=== PATIENT | male | born 1970 | race Caucasian/White ===

== ENCOUNTER 2017-08-28 09:02 | Emergency (ER) | payer SELFPAY ==
[2017-08-28] MEDS ORDERED: Lidocaine 1% w/Epinephrine 1:100K 20 ML VIAL ONE (09:08)
[2017-08-28] MEDS ORDERED: Adacel (T-DAP) 0.5 ML VIAL ONE (09:09)
[2017-08-28] MEDS ORDERED: HYDROcodone/Acetaminophen 10/325 mg Tablet ONE (09:24)
--- NOTE | 2017-08-28 09:48 | RAD ---
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 FINDINGS: AP, lateral, and oblique views of left hand obtained. Images demonstrate extensive soft tissue injury along the dorsal medial aspect of soft tissues of the base of the right hand just medial and dorsal to the carpometacarpal joint medially. There is exten sive soft tissue injury. Fragments of metal are seen within the injured soft tissues. No other sign ificant masses or lesions seen. IMPRESSION: Extensive soft tissue injury with fragments of metal within the injured soft tissue. Additional mult iple fragments of metal are seen covering the patient's left hand. POS: [facility]
[2017-08-28] MEDS ORDERED: Ketorolac Tromethamine 60 MG/2 ML VIAL ONE (10:24)
== END 2017-08-28 10:49 | disposition home or self-care (01) ==
LOC: ERS 09:02
DX: S66.327A Laceration of extensor muscle, fascia and tendon of left little finger at wrist and hand level, initial encounter (principal); F17.210 Nicotine dependence, cigarettes, uncomplicated; I10 Essential (primary) hypertension; W26.8XXA Contact with other sharp object(s), not elsewhere classified, initial encounter
CPT/HCPCS: 12002; 90471; 90715; 96372; J1885; J2001

== ENCOUNTER 2017-08-28 20:21 | Inpatient (IN) | payer SELFPAY ==
[~2017-08-28 20:21] MED LIST: Dexamethasone 20 MG/5 ML VIAL ONE; Lidocaine 1% PF 5 ML VIAL ONE; Ondansetron HCl/PF 4 MG/2 ML Vial ONE; PHENYLEPHRINE-NS 100 MCG/ML 10 ML SYRINGE ONE; PROPOFOL 200 MG/20 ML VIAL ONE; ePHEDrine/0.9% NaCl/PF SYRINGE 50 mg/10 ml ONE
[2017-08-28] MEDS ORDERED: Labetalol HCl 100 MG/20 ML VIAL ONE (20:25)
[2017-08-28 20:36] LABS: #Basophils 0.1 thou/uL (0.0-0.2); #Eosinphils 0.2 thou/uL (0.0-0.7); #Lymphocytes 3.9 thou/uL (1.20-3.40); #Monocytes 1.4 thou/uL (0.11-0.59); #Neutrophils 7.2 thou/uL (1.40-6.50); %Basophils 0.9 % (0.0-1.0); %Eosinophils 1.5 % (0.0-10.0); %Lymphocytes 30.3 % (21.0-51.0); %Monocytes 11.2 % (0.0-10.0); %Neutrophils 56.2 % (42.0-75.0); Hemoglobin 13.7 g/dL (14.0-18.0); Mean Corpuscular HGB CONC 34.2 g/dL (32.0-36.0); Mean Corpuscular Volume 90.8 fl (80.0-94.0); Mean Platelet Volume 7.3 fL (7.4-10.4); Platelet Count 274 thou/uL (130-400); RBC Distribution Width 12.1 % (11.5-14.5); Red Blood Cell (RBC) Count 4.43 mill/uL (4.70-6.10); White Blood Cell (WBC) Count 12.9 thou/uL (4.8-10.8)
[2017-08-28] MEDS ORDERED: Clindamycin/D5W 600 mg/50 ml Premix Bag ONE (20:59)
[2017-08-28] MEDS ORDERED: Levofloxacin 500 mg/D5W 100 ml Premix Bag ONE (20:59)
[2017-08-28] MEDS ORDERED: Bacitracin Zinc Ointment 30 gm TUBE ONE (21:01)
[2017-08-28] MEDS ORDERED: Bupivacaine PF 0.5% 30 ML VIAL ONE (21:01)
[2017-08-28] MEDS ORDERED: Sodium Chloride 0.9% 10 ML ONE (21:01)
[2017-08-28] MEDS ORDERED: Fentanyl 100 MCG/2 ML VIAL ONE (21:35)
[2017-08-28] MEDS ORDERED: Midazolam HCl 2 mg/2 ml Vial ONE (21:52)
[2017-08-28] MEDS ORDERED: Sodium Chloride 0.9% 20 ML ONE (22:48)
[2017-08-28] MEDS ORDERED: Ondansetron HCl/PF 4 MG/2 ML Vial IVP PRN (23:34)
[2017-08-28] MEDS ORDERED: Promethazine HCl 25 MG/ML VIAL IM PRN (23:34)
[2017-08-28] MEDS ORDERED: Promethazine HCl 25 MG/ML VIAL SLOW IVP PRN (23:34)
[2017-08-28] MEDS ORDERED: Communication Order-Pharmacy FS SCH (23:45)
[2017-08-28] MEDS ORDERED: traMADol HCl 50 MG TAB PO PRN (23:54)
[2017-08-28] MEDS ORDERED: Bisacodyl 10 MG SUPP PR PRN (23:54)
[2017-08-28] MEDS ORDERED: Morphine 4 MG/ML Carpuject IVP PRN (23:54)
[2017-08-28] MEDS ORDERED: Milk Of Magnesia 30 ML UDCUP PO PRN (23:54)
[2017-08-28] MEDS ORDERED: Ondansetron HCl/PF 4 MG/2 ML Vial IV PRN (23:54)
[2017-08-28] MEDS ORDERED: Acetaminophen 325 MG TAB PO PRN (23:54)
[2017-08-28] MEDS ORDERED: Ketorolac Tromethamine 30 MG/ML VIAL ONE (23:57)
[2017-08-29] MEDS ORDERED: HYDROcodone/Acetaminophen 7.5/325 mg Tablet PO PRN (00:06)
[2017-08-29] MEDS ORDERED: Fentanyl 100 MCG/2 ML VIAL ONE (00:06)
[2017-08-29] MEDS ORDERED: Ketorolac Tromethamine 30 MG/ML VIAL IVP PRN (00:16)
[2017-08-29] MEDS: Morphine 4 MG/ML VIAL IV PRN ×2 (01:20→10:38)
[2017-08-29] MEDS: CEFAZOLIN 1 GM in Sodium Chloride 0.9% 100 ML IVPB SCH ×3 (01:24→16:49)
[2017-08-29] MEDS: Gentamicin 80 MG/2 ML VIAL IM SCH ×3 (01:24→16:49)
[2017-08-29 01:45] VITALS: BMI 26.0
[2017-08-29 04:05] LABS: #Lymphocytes 1.1 thou/uL (1.20-3.40); #Monocytes 0.2 thou/uL (0.11-0.59); #Neutrophils 9.7 thou/uL (1.40-6.50); %Basophils 0.4 % (0.0-1.0); %Lymphocytes 9.8 % (21.0-51.0); %Monocytes 1.8 % (0.0-10.0); %Neutrophils 87.9 % (42.0-75.0); Hemoglobin 13.5 g/dL (14.0-18.0); Mean Corpuscular HGB CONC 33.9 g/dL (32.0-36.0); Mean Corpuscular Hemoglobin 31.2 pg (27.0-31.0); Mean Corpuscular Volume 92.1 fl (80.0-94.0); Mean Platelet Volume 7.4 fL (7.4-10.4); Platelet Count 257 thou/uL (130-400); RBC Distribution Width 12.1 % (11.5-14.5); Red Blood Cell (RBC) Count 4.33 mill/uL (4.70-6.10)
[2017-08-29] MEDS: Aspirin 81 mg Enteric Coated Tablet PO SCH ×2 (08:46→21:19)
[2017-08-29] MEDS ORDERED: TETANUS AND DIPHTHERIA TOX/PF 0.5 ML DISP.SYRIN IM SCH (09:00)
[2017-08-29] MEDS: HYDROcodone/Acetaminophen 5/325 mg Tablet PO PRN ×2 (14:57→21:19)
[2017-08-29 15:23] LABS: Hemoglobin A1c 4.9 % (4.0-6.0)
[2017-08-29 15:37] LABS: ALT (SGPT) 53 U/L (8-55); AST (SGOT) 23 U/L (5-34); Albumin 3.4 g/dL (3.5-5.0); Alkaline Phosphatase 70 U/L (40-150); Anion Gap 10 mmol/L (10-20); BUN (Urea Nitrogen) 14 mg/dL (8.9-20.6); Bilirubin, Total 0.2 mg/dL (0.2-1.2); Calc. Creatinine Clearance 120 mL/min (70-130); Calcium 8.9 mg/dL (7.8-10.44); Carbon Dioxide 23 mmol/L (22-29); Chloride 107 mmol/L (98-107); Estimated GFR-MDRD 89; Globulin 3.1 g/dL (2.4-3.5); Glucose 206 mg/dL (70-105); Potassium 4.2 mmol/L (3.5-5.1); Protein, Total 6.5 g/dL (6.0-8.3); Sodium 136 mmol/L (136-145)
--- NOTE | 2017-08-29 15:52 | OP ---
DATE OF SURGERY: 08/29/2017 PREOPERATIVE DIAGNOSES: 1. Open joint injury, small finger and ring finger to hamate, carpometacarpal joint. 2. Possible open fracture to hamate. 3. Multiple extensor tendon lacerations, dorsal ulnar hand. 4. Possible superficial ulnar nerve lesion. 5. More complete superficial ulnar nerve lesion with lacerations just over the extensor carpi ulnari s in the proximal aspect of the wound. A. Complete extensor carpi ulnaris laceration of tendon and sheet. B. Complete laceration of the ring finger and small finger extensor tendons. C. Open joint with minimal contamination. D. Open hamate fracture base ulnar aspect involving 50% of the width of the hamate with brown partic les embedded. PROCEDURES DONE: The patient also had the following findings: 1. A 2 cm compression fracture on the dorsal aspect of hamate with embedded particles. 2. Subcutaneous metallic particles and dirt in the center of the wound. 3. Hematoma. 4. Extensor carpi ulnaris, small finger, extensor tendon and ring finger extensor laceration. 5. Superficial ulnar nerve dorsal aspect of the hand and metacarpal base lacerations completed. A. Debridement of the wound. B. Debridement of the carpometacarpal joint, SF/RF to hamate. C. Debridement of material associated open fracture. D. Open treatment of hamate fracture. E. Evacuation of hematoma. 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 Upon reevaluation in the emergency room, he had eaten at , thus necessitating an approximate ly 2100 start. DESCRIPTION OF PROCEDURE: After successful general endotracheal anesthesia, the patient's limb was p repped and draped. We also had on exam evidence of weakness of lateralization and abduction of the e xtremity and this was confirmed. After prepping and draping, given 30 mL of 0.5% Marcaine block, exs anguinated limb, inflated the tourniquet to 250 mmHg pressure and performed standard care of procedur es, patient still had inability after this router injury to make extensor mechanism worked appropriat maki. For this reason, after successful general endotracheal anesthesia, the limb was prepped and daily ped. We then inflected the edges back using a 45 degree proximal and 45 degree distal incision in th e opposite side of the ulnar ray. This then led to dissection down to and including the joint capsul e, which was opened and had a hematoma around it, we excised this. Then, simultaneously we began to lift up the joint, open joint, 4th and 5th carpometacarpal joint as well as the hamate fracture with an impression of 5 mm thick x 2 cm long. Once we had performed these debridements to include using tenotomy scissors for subcutaneous debridem ent, the technique of debridement was excisional and then there was no evidence of conflict. The patient then had the wound further inspected following extensor carpi ulnaris laceration 5 mm fro m the insertion with slight opening in the retinaculum with 1 cm reveal the few particles, a hematoma of approximately 50 mL, which were evacuated and then began on second irrigation today. Once this w as accomplished, we identified the extensor carpi ulnaris and extensor digiti minimi which had withdr awn back into the retinaculum, we visualized clinically fusion mass as well radiographically, and the n the patient had hemostasis obtained after deflating the wound. The tourniquet, put a moist dressin g with a sorbsan, calcium alginate dressing next to the wound and finger tube gauze with the plan to remove the dressing and then 36-48 hours from now have second look surgery with debridement .
[2017-08-29 18:10] LABS: Bilirubin Negative (Negative); Blood, Urine Negative (Negative); Clarity CLEAR (Clear); Glucose, Urine (Dipstick) 500 mg/dL (Negative); Leukocyte Negative (Negative); Nitrite Negative (Negative); Protein, Urine (Dipstick) Negative (Neg-Trace); Specific Gravity, Urine 1.021 (1.002-1.036); Urobilinogen 0.2 mg/dL (0.2-1.0)
[2017-08-29] MEDS: Vancomycin HCl 1.25 GM in Sodium Chloride 0.9% 250 ML 250 ML IVPB SCH (18:47)
[2017-08-29] MEDS: Chlorhexidine Gluconate 15 ML UDCUP SSP SCH (21:19)
--- NOTE | 2017-08-29 22:47 | PDOC.PN ---
- Subjective Encounter Start Date: 08/29/17 Encounter Start Time: 14:00 Patient seen and examined for med mgnt. c/o Polyuria/dysuria. Some dental pain on and off. No new complaints. No overnight events - Objective MAR Reviewed: Yes Vital Signs & Weight: Vital Signs (12 hours) Temp Pulse Resp BP Pulse Ox 08/29/17 20:00 98.3 F 94 18 149/87 H 94 L 08/29/17 15:45 98.7 F 95 14 160/84 H 92 L 08/29/17 12:19 98.7 F 93 16 142/82 H 94 L 08/29/17 11:55 98.7 F 93 16 142/82 H 94 L Weight Weight 187 lb I&O: 08/28/17 08/29/17 08/30/17 06:59 06:59 06:59 Intake Total 1500 Output Total 700 850 Balance -700 650 Result Diagrams: 08/29/17 03:44 08/29/17 15:03 EKG Reviewed by me: Yes (SR on tele strips) Phys Exam - Physical Examination Constitutional: NAD Respiratory: no wheezing, no rhonchi Cardiovascular: RRR, no rub Gastrointestinal: soft, non-tender, positive bowel sounds Dx/Plan (1) Elevated BP without diagnosis of hypertension Code(s): R03.0 - ELEVATED BLOOD-PRESSURE READING, W/O DIAGNOSIS OF HTN Status : Acute (2) Dysuria Code(s): R30.0 - DYSURIA Status: Acute Comment: with Polyuria (3) Lack of energy Code(s): R53.83 - OTHER FATIGUE Status: Acute (4) Hyperglycemia Code(s): R73.9 - HYPERGLYCEMIA, UNSPECIFIED Status: Acute (5) Tobacco dependence Code(s): F17.200 - NICOTINE DEPENDENCE, UNSPECIFIED, UNCOMPLICATED Status: Acute Comment: Counselled. (6) CKD (chronic kidney disease) stage 2, GFR 60-89 ml/min Code(s): N18.2 - CHRONIC KIDNEY DISEASE, STAGE 2 (MILD) Status: Chronic - Plan DVT proph w/SCDs Add Amlodipine in AM if BP still elevated, Add Peridex for dental caries -: Check A1c to r/o DM, Add PRN meds -: Check UA for dysuria, Also check TSH due to gen weakness. -: Will follow PRN. Thank you for this consultation. Review of Systems - Review of Systems Respiratory: negative: Cough, Dry, Shortness of Breath, Hemoptysis, SOB with Excertion, Pleuritic Pain, Sputum, Wheezing Cardiovascular: negative: chest pain, palpitations, orthopnea, paroxysmal nocturnal dyspnea, edema, light headedness, other Genitourinary: Dysuria, Other (Polyuria) - Medications/Allergies Allergies/Adverse Reactions: Allergies Allergy/AdvReac Type Severity Reaction Status Date / Time No Known Allergies Allergy Verified 08/29/17 01:37 Medications: Current Medications Acetaminophen (Tylenol) 650 mg PO Q6H PRN PRN Reason: Headache/Temp >101F/Mild Pain Hydrocodone Bitart/Acetaminophen ([place] 5/325) 2 tab PO Q4H PRN PRN Reason: Severe Pain (7-10) Last Admin: 08/29/17 21:19 Dose: 2 tab Hydrocodone Bitart/Acetaminophen ([place] 7.5/325) 1 tab PO Q4H PRN PRN Reason: Mild Pain (1-3) Aspirin (Ecotrin) 81 mg PO BID [facility] Last Admin: 08/29/17 21:19 Dose: 81 mg Bisacodyl (Dulcolax) 10 mg OR DAILYPRN PRN PRN Reason: Constipation Chlorhexidine Gluconate (Chlorhexidine Gluconate) 15 ml SSP BID [facility] Last Admin: 08/29/17 21:19 Dose: 15 ml Gentamicin Sulfate (Gentamicin Sulfate) 80 mg IM 0100,0900,1700 [facility] Stop: 09/01/17 01:01 Last Admin: 08/29/17 16:49 Dose: 80 mg Cefazolin Sodium 1 gm/ Sodium (Chloride) 100 mls @ 200 mls/hr IVPB 0100,0900, 1700 [facility] Stop: 09/01/17 01:01 Last Admin: 08/29/17 16:49 Dose: 100 mls Vancomycin HCl 1.25 gm/ Sodium (Chloride) 250 mls @ 166.667 mls/hr IVPB 0200, 1000,1800 [facility] Last Admin: 08/29/17 18:47 Dose: 250 mls Ketorolac Tromethamine (Toradol) 30 mg IVP Q6H PRN PRN Reason: Pain Stop: 09/03/17 00:17 Magnesium Hydroxide (Milk Of Magnesium) 30 ml PO DAILYPRN PRN PRN Reason: Constipation Miscellaneous Information (Communication Order-Pharmacy) 1 each FS ONE [facility] Stop: 08/29/17 23:59 Miscellaneous Medication (Pharmacy To Dose) 0 each IVPB PRN PRN PRN Reason: RENALLY ADJUST MEDICATIONS Miscellaneous Medication (Pharmacy To Dose) 1 each IVPB PRN PRN PRN Reason: Pharmacy to dose Morphine Sulfate (Morphine) 4 mg IV Q2H PRN PRN Reason: Severe Pain (7-10) Last Admin: 08/29/17 10:38 Dose: 4 mg Ondansetron HCl (Zofran) 4 mg IV Q6H PRN PRN Reason: Nausea Sodium Chloride (Flush - Normal Saline) 10 ml IVF PRN PRN PRN Reason: Saline Flush Last Admin: 08/29/17 16:49 Dose: 10 ml Tetanus/Diphtheria Toxoids Adsorbed (Tenivac Syringe) 0.5 ml IM [facility] Stop: 08/29/17 23:59 Tramadol HCl (Ultram) 50 mg PO Q6H PRN PRN Reason: Mild Pain (1-3) Last Admin: 08/29/17 03:45 Dose: 50 mg
[2017-08-30] MEDS: CEFAZOLIN 1 GM in Sodium Chloride 0.9% 100 ML IVPB SCH ×3 (01:57→18:11)
[2017-08-30] MEDS: Gentamicin 80 MG/2 ML VIAL IM SCH ×3 (01:58→18:11)
[2017-08-30] MEDS: Vancomycin HCl 1.25 GM in Sodium Chloride 0.9% 250 ML 250 ML IVPB SCH ×3 (01:59→18:59)
[2017-08-30] MEDS: Chlorhexidine Gluconate 15 ML UDCUP SSP SCH ×2 (08:47→20:36)
[2017-08-30] MEDS: Aspirin 81 mg Enteric Coated Tablet PO SCH ×2 (08:47→20:34)
[2017-08-30] MEDS ORDERED: Betamet Acet/Betamet Na Ph 30 MG/5 ML VIAL ONE (12:09)
[2017-08-30] MEDS ORDERED: Bacitracin Zinc Ointment 30 gm TUBE ONE (12:09)
[2017-08-30] MEDS ORDERED: Bupivacaine PF 0.5% 30 ML VIAL ONE (12:09)
[2017-08-30] MEDS ORDERED: Fentanyl 250 MCG/5 ML VIAL ONE (13:59)
[2017-08-30] MEDS ORDERED: Midazolam HCl 2 mg/2 ml Vial ONE (13:59)
[2017-08-30] MEDS ORDERED: Esmolol 100 MG/10 ML VIAL ONE (14:44)
[2017-08-30] MEDS ORDERED: Lidocaine 1% PF 5 ML VIAL ONE (14:44)
[2017-08-30] MEDS ORDERED: Ketorolac Tromethamine 30 MG/ML VIAL ONE (14:44)
[2017-08-30] MEDS ORDERED: Ondansetron HCl/PF 4 MG/2 ML Vial ONE (14:44)
[2017-08-30] MEDS ORDERED: PROPOFOL 200 MG/20 ML VIAL ONE (14:44)
[2017-08-30] MEDS ORDERED: Sodium Chloride 0.9% 10 ML ONE (15:36)
[2017-08-30] MEDS ORDERED: Morphine Sulfate 2 MG/ML SYRINGE SLOW IVP PRN (17:27)
[2017-08-30] MEDS ORDERED: Promethazine HCl 25 MG/ML VIAL SLOW IVP PRN (17:27)
[2017-08-30] MEDS ORDERED: Meperidine HCl/PF 25 MG/ML VIAL SLOW IVP PRN (17:27)
[2017-08-30] MEDS ORDERED: HYDROmorphone 2 MG/ML VIAL SLOW IVP PRN (17:27)
[2017-08-30] MEDS ORDERED: Gentamicin 80 MG/2 ML VIAL ONE (17:35)
[2017-08-30 19:24] LABS: Vancomycin, Trough 14.7 ug/mL
[2017-08-30] MEDS: HYDROcodone/Acetaminophen 5/325 mg Tablet PO PRN (20:34)
[2017-08-30] MEDS ORDERED: Vancomycin HCl 1 GM in Premix Bag 1 BAG IVPB SCH (21:00)
[2017-08-30] MEDS ORDERED: Amlodipine 5 MG TAB PO SCH (21:00)
[2017-08-30] MEDS: Ibuprofen 800 MG TAB PO SCH (21:25)
[2017-08-30] MEDS: hydrALAZINE 20 MG/ML VIAL SLOW IVP PRN (22:07)
[2017-08-31] MEDS: CEFAZOLIN 1 GM in Sodium Chloride 0.9% 100 ML IVPB SCH ×3 (00:18→17:40)
[2017-08-31] MEDS: Gentamicin 80 MG/2 ML VIAL IM SCH ×3 (00:25→17:40)
[2017-08-31] MEDS: Vancomycin HCl 1.25 GM in Sodium Chloride 0.9% 250 ML 250 ML IVPB SCH ×3 (01:22→18:27)
[2017-08-31] MEDS: Ibuprofen 800 MG TAB PO SCH ×2 (05:02→13:40)
[2017-08-31] MEDS: HYDROcodone/Acetaminophen 5/325 mg Tablet PO PRN ×3 (08:26→19:50)
[2017-08-31] MEDS: Chlorhexidine Gluconate 15 ML UDCUP SSP SCH (08:26)
[2017-08-31] MEDS: Aspirin 81 mg Enteric Coated Tablet PO SCH (08:26)
[2017-08-31] MEDS ORDERED: Amlodipine 5 MG TAB PO SCH (10:15)
[2017-08-31] MEDS ORDERED: Lisinopril 20 MG TAB PO SCH ×2 (10:15→21:00)
[2017-08-31] MEDS: hydrALAZINE 20 MG/ML VIAL SLOW IVP PRN (12:33)
--- NOTE | 2017-08-31 14:03 | OP ---
PREOPERATIVE DIAGNOSES: 1. Open wound, carpometacarpal joint, small finger, ring finger, and hamate. 2. Hamate fracture, open grade 2. 3. Laceration of extensor digitorum communis of the small finger. 4. Laceration of extensor digitorum minimi. 5. Laceration of extensor carpi ulnaris. 6. Laceration of superficial ulnar nerve. 7. A 6 cm skin wound. FINDINGS: There is no gross contamination, but all structures were open to include joints. PROCEDURES PERFORMED: 1. Debridement of material associated with hamate fracture. 2. Open treatment of hamate fracture without internal fixation. 3. C-arm supervision. 4. Debridement of wound. 5. Joint capsule repair. 6. Repair, extensor digitorum communis of small finger. 7. Repair, extensor digitorum minimi of small finger. 8. Repair of extensor carpi ulnaris tendon. All of these were in zone 6 just distal to the retinacu lum with the extensor carpi ulnaris being just 1 cm oblique end still attached to bone. 9. Retinaculum repair. 10. Closure of wound, 6 cm complex. Findings again, no gross infections. INDICATIONS: The patient returns for staged wound management after router injury where, approximatel y 40 hours prior to this procedure, he had too many dirt particles and felt that although the wound a ppeared clean at the end of procedure, it should have at least 1 more debridement to include intra-ar ticular bony before it was closed. During this procedure, for the patient's debridements, we used th e following technique: A. Excisional technique. B. Depth down to include bone seen. No gross contamination found. The instrumentation were: 1. Curette. 2. Tenotomy scissors with Adson. 3. A [place] blade. 4. 11-blade knife. 5. Pulsavac. We will use 2 L normal saline and Pulsavac pressure. DESCRIPTION OF PROCEDURE: After successful general endotracheal anesthesia, the limb was prepped and draped. His wound was completely dissected again, and extended 2 cm more proximal to find the exten sor digitorum communis and extensor digitorum minimi. Then, we were able to relocate the extensor ca rpi ulnaris. Once sufficient debridement of bone, joint and open treatment of hamate fracture as jake cribed above, then with the limb exsanguinated, closed the capsule over the small finger, ring finger , carpometacarpal joint with interrupted 2-0 Vicryl. We then repaired the extensor digitorum communi s to the small finger, extensor digitorum minimi with multiple [id number] loops of 4-0 Prolene. We used a combination of a 3-0 loop suture using the technique of Brandon/Charbel where we had just adequat e enough distal tendon, oversewed this with a 6-0 Prolene for the repair of the extensor carpal ulnar is. All repairs were done with the wrist at approximately 20 degrees extension. Once we finished this, we then repaired the retinaculum to include the portion that was cut as well a s a portion that was dissected using a 3-0 Monocryl. The patient did have microscope brought into the field. We found 2 branches of superficial ulnar ner ve, one branch was completely destroyed by the router. We trimmed them under the microscope, repaire d each with three 8-0 nylons, and then released the tourniquet, obtained hemostasis. We finely debri ded the wound edges using the technique listed above, closed with interrupted 4-0 nylon in mattress p attern and the patient left the operating room without evidence of anesthetic or operative complicati on in a splint with the wrist at 20 degrees dorsiflexion and the tendons of the small ring finger pro tected by the the splint going out to the level of the middle of the middle phalanx.
[2017-08-31 15:16] VITALS: BP 158/82; TEMP 98.1
--- NOTE | 2017-08-31 15:20 | PDOC.PN ---
- Subjective Encounter Start Date: 08/31/17 Encounter Start Time: 11:15 Subjective: pt up in bed no complains - Objective Vital Signs & Weight: Vital Signs (12 hours) Temp Pulse Resp BP BP Pulse Ox 08/31/17 15:16 98.1 F 75 14 158/82 H 97 08/31/17 14:00 171/102 H 08/31/17 12:33 73 184/99 H 08/31/17 10:14 97 166/102 H 08/31/17 08:25 98.9 F 97 18 99 08/31/17 08:00 98.9 F 97 18 166/102 H 99 08/31/17 04:21 98.6 F 77 16 177/114 H 95 Weight Weight 187 lb I&O: 08/30/17 08/31/17 09/01/17 06:59 06:59 06:59 Intake Total 1500 740 Output Total 850 525 Balance 650 215 Result Diagrams: 08/29/17 03:44 08/29/17 15:03 Phys Exam - Physical Examination HEENT: PERRLA, moist MMs, sclera anicteric, TM's clear, oral pharynx no lesions , 2+ tonsils Neck: no nodes, no JVD, supple, full ROM Respiratory: no wheezing, no rales, no rhonchi, wheezing present, clear to auscultation bilateral Cardiovascular: RRR, no significant murmur, no rub, gallop, irregular Gastrointestinal: soft, non-tender, no distention, positive bowel sounds left hand in isabella wrap Dx/Plan (1) Elevated BP without diagnosis of hypertension Code(s): R03.0 - ELEVATED BLOOD-PRESSURE READING, W/O DIAGNOSIS OF HTN Status : Acute (2) Dysuria Code(s): R30.0 - DYSURIA Status: Acute Comment: with Polyuria (3) Lack of energy Code(s): R53.83 - OTHER FATIGUE Status: Acute - Plan 1) htn 2) dysuria 3) lack of energy plan: pt states that he has been rx antihypertensives in the past but just stopped taking it. will start pt on norvasc 10mg daily and lisinopril 20mg bid and see if this helps. His tsh was low but free t4 normal no intervention and his hbg alc is 4.8. UA no infection noted. * . Review of Systems - Review of Systems ENT: negative: Ear Pain, Ear Discharge, Nose Pain, Nose Discharge, Nose Congestion, Mouth Pain, Mouth Swelling, Throat Pain, Throat Swelling, Other Respiratory: negative: Cough, Dry, Shortness of Breath, Hemoptysis, SOB with Excertion, Pleuritic Pain, Sputum, Wheezing Cardiovascular: negative: chest pain, palpitations, orthopnea, paroxysmal nocturnal dyspnea, edema, light headedness, other Gastrointestinal: negative: Nausea, Vomiting, Abdominal Pain, Diarrhea, Constipation, Melena, Hematochezia, Other - Medications/Allergies Allergies/Adverse Reactions: Allergies Allergy/AdvReac Type Severity Reaction Status Date / Time No Known Allergies Allergy Verified 08/29/17 01:37 Medications: Current Medications Acetaminophen (Tylenol) 650 mg PO Q6H PRN PRN Reason: Headache/Temp >101F/Mild Pain Hydrocodone Bitart/Acetaminophen ([place] 5/325) 2 tab PO Q4H PRN PRN Reason: Severe Pain (7-10) Last Admin: 08/31/17 13:39 Dose: 2 tab Hydrocodone Bitart/Acetaminophen ([place] 7.5/325) 1 tab PO Q4H PRN PRN Reason: Mild Pain (1-3) Amlodipine Besylate (Norvasc) 10 mg PO DAILY [facility] Aspirin (Ecotrin) 81 mg PO BID [facility] Last Admin: 08/31/17 08:26 Dose: 81 mg Bisacodyl (Dulcolax) 10 mg CO DAILYPRN PRN PRN Reason: Constipation Chlorhexidine Gluconate (Chlorhexidine Gluconate) 15 ml SSP BID [facility] Last Admin: 08/31/17 08:26 Dose: 15 ml Gentamicin Sulfate (Gentamicin Sulfate) 80 mg IM 0100,0900,1700 [facility] Stop: 09/01/17 01:01 Last Admin: 08/31/17 08:26 Dose: 80 mg Hydralazine HCl (Apresoline) 10 mg SLOW IVP Q4H PRN PRN Reason: SBP Greater Than 180 Last Admin: 08/31/17 12:33 Dose: 10 mg Cefazolin Sodium 1 gm/ Sodium (Chloride) 100 mls @ 200 mls/hr IVPB 0100,0900, 1700 [facility] Stop: 09/01/17 01:01 Last Admin: 08/31/17 08:27 Dose: 100 mls Vancomycin HCl 1.25 gm/ Sodium (Chloride) 250 mls @ 166.667 mls/hr IVPB 0200, 1000,1800 [facility] Last Admin: 08/31/17 10:14 Dose: 250 mls Ibuprofen (Motrin) 800 mg PO Q8HR [facility] Last Admin: 08/31/17 13:40 Dose: 800 mg Ketorolac Tromethamine (Toradol) 30 mg IVP Q6H PRN PRN Reason: Pain Stop: 09/03/17 00:17 Last Admin: 08/30/17 12:04 Dose: 30 mg Lisinopril (Zestril) 20 mg PO BID [facility] Magnesium Hydroxide (Milk Of Magnesium) 30 ml PO DAILYPRN PRN PRN Reason: Constipation Miscellaneous Medication (Pharmacy To Dose) 0 each IVPB PRN PRN PRN Reason: RENALLY ADJUST MEDICATIONS Miscellaneous Medication (Pharmacy To Dose) 1 each IVPB PRN PRN PRN Reason: Pharmacy to dose Morphine Sulfate (Morphine) 4 mg SLOW IVP Q2H PRN PRN Reason: Severe Pain (7-10) Last Admin: 08/31/17 14:27 Dose: 4 mg Ondansetron HCl (Zofran) 4 mg IV Q6H PRN PRN Reason: Nausea Sodium Chloride (Flush - Normal Saline) 10 ml IVF PRN PRN PRN Reason: Saline Flush Last Admin: 08/29/17 16:49 Dose: 10 ml Tramadol HCl (Ultram) 50 mg PO Q6H PRN PRN Reason: Mild Pain (1-3) Last Admin: 08/29/17 03:45 Dose: 50 mg
[2017-08-31 17:17] LABS: Vancomycin, Trough 18.9 ug/mL
[2017-09-01] MEDS ORDERED: Amlodipine 10 MG TAB PO SCH (09:00)
== END 2017-08-31 20:16 | disposition home or self-care (01) | DRG 506 ==
LOC: SDC 20:21 → SURG A 08-29 00:15
PROVIDERS: ADMIT Orthopaedic Surgery Hand Surgery; ATTEND Orthopaedic Surgery Hand Surgery
PROC: 0RCV0ZZ Extirpation of Matter from Left Metacarpophalangeal Joint, Open Approach (ICD-10-PCS; 2017-08-29)
PROC: 0JBK0ZZ Excision of Left Hand Subcutaneous Tissue and Fascia, Open Approach (ICD-10-PCS; 2017-08-29)
PROC: 01Q40ZZ Repair Ulnar Nerve, Open Approach (ICD-10-PCS; principal; 2017-08-31)
PROC: 0PSN0ZZ Reposition Left Carpal, Open Approach (ICD-10-PCS; 2017-08-31)
PROC: 0XQW0ZZ Repair Left Little Finger, Open Approach (ICD-10-PCS; 2017-08-31)
PROC: 0LQ80ZZ Repair Left Hand Tendon, Open Approach (ICD-10-PCS; 2017-08-31)
DX: S62.142B Displaced fracture of body of hamate [unciform] bone, left wrist, initial encounter for open fracture (principal); S61.217A Laceration without foreign body of left little finger without damage to nail, initial encounter; Y28.8XXA Contact with other sharp object, undetermined intent, initial encounter; S61.215A Laceration without foreign body of left ring finger without damage to nail, initial encounter; S61.512A Laceration without foreign body of left wrist, initial encounter; F17.200 Nicotine dependence, unspecified, uncomplicated; R73.9 Hyperglycemia, unspecified; I12.9 Hypertensive chronic kidney disease with stage 1 through stage 4 chronic kidney disease, or unspecified chronic kidney disease; N18.2 Chronic kidney disease, stage 2 (mild)
CPT/HCPCS: 36415; 80053; 80202; 81003; 83036; 84439; 84443; 85025; A4216; J0360; J0690; J0702; J1100; J1580; J1885; J1956; J2001; J2250; J2270; J2405; J2704; J3010; J3370; J3490; J7050; S0020

== ENCOUNTER 2018-01-07 21:44 | Observation (INO) | payer SELFPAY ==
[2018-01-07 22:30] LABS: #Basophils 0.2 thou/uL (0.0-0.2); #Eosinphils 0.1 thou/uL (0.0-0.7); #Lymphocytes 5.3 thou/uL (1.20-3.40); #Monocytes 1.8 thou/uL (0.11-0.59); #Neutrophils 9.2 thou/uL (1.40-6.50); %Basophils 1.1 % (0.0-1.0); %Eosinophils 0.4 % (0.0-10.0); %Lymphocytes 32.1 % (21.0-51.0); %Monocytes 10.8 % (0.0-10.0); %Neutrophils 55.6 % (42.0-75.0); Hemoglobin 15.2 g/dL (14.0-18.0); Mean Corpuscular HGB CONC 33.7 g/dL (32.0-36.0); Mean Corpuscular Hemoglobin 29.9 pg (27.0-31.0); Mean Corpuscular Volume 88.7 fL (78.0-98.0); Mean Platelet Volume 7.9 fL (7.4-10.4); Platelet Count 306 thou/uL (130-400); RBC Distribution Width 12.3 % (11.5-14.5); Red Blood Cell (RBC) Count 5.07 mill/uL (4.70-6.10); White Blood Cell (WBC) Count 16.6 thou/uL (4.8-10.8)
--- NOTE | 2018-01-07 22:42 | RAD ---
PORTABLE CHEST: History: Hypertension. Comparison: 12-24-17 FINDINGS: Heart size and mediastinum are within normal limits. The lungs are clear of infiltrates. No significa nt bony findings. IMPRESSION: No active intrathoracic disease. POS: [facility]
[2018-01-07 22:51] LABS: ALT (SGPT) 121 U/L (8-55); AST (SGOT) 86 U/L (5-34); Albumin 4.7 g/dL (3.5-5.0); Alkaline Phosphatase 61 U/L (40-150); Anion Gap 17 mmol/L (10-20); BUN (Urea Nitrogen) 20 mg/dL (8.9-20.6); Bilirubin, Total 1.3 mg/dL (0.2-1.2); Calc. Creatinine Clearance 0 mL/min (70-130); Calcium 9.7 mg/dL (7.8-10.44); Carbon Dioxide 22 mmol/L (22-29); Chloride 106 mmol/L (98-107); Estimated GFR-MDRD 72; Globulin 4.1 g/dL (2.4-3.5); Glucose 108 mg/dL (70-105); Potassium 3.5 mmol/L (3.5-5.1); Protein, Total 8.8 g/dL (6.0-8.3); Sodium 141 mmol/L (136-145)
[2018-01-07 22:56] LABS: Troponin I 0.011 ng/mL (< 0.028)
[2018-01-07 23:00] LABS: CKMB 11.8 ng/mL (0-6.6)
[2018-01-07 23:33] LABS: Bilirubin Small (Negative); Blood, Urine Negative (Negative); Clarity CLEAR (Clear); Glucose, Urine (Dipstick) Negative (Negative); Leukocyte Negative (Negative); Nitrite Negative (Negative); Protein, Urine (Dipstick) 30 mg/dL (Neg-Trace); Specific Gravity, Urine 1.033 (1.002-1.036); Urobilinogen 0.2 mg/dL (0.2-1.0); pH, Urine 5.5 (5.0-9.0)
[2018-01-07] MEDS ORDERED: Labetalol HCl 100 MG/20 ML VIAL ONE (23:33)
[2018-01-07 23:36] LABS: Bacteria/HPF None Seen HPF (None Seen); Pathc Cast-AUWi Flag 1.45 (0-2.49); RBC/HPF 0-3 HPF (0-3); Squamous Epithelial 0-3 HPF (0-3)
--- NOTE | 2018-01-07 23:39 | CT ---
CT OF BRAIN PERFORMED WITHOUT CONTRAST ENHANCEMENT: History: Headache. High blood pressure. FINDINGS: The ventricular and cisternal system is within normal limits. No signs of intracerebral hemorrhage or extraaxial fluid collections. The mastoid air cells and visualized sinuses are clear. IMPRESSION: No acute intracranial abnormalities. POS: [facility]
[2018-01-07 23:40] LABS: Medtox Reader # READER 4
[2018-01-07 23:41] LABS: Amphetamine Detected (NotDetected); Barbiturates Screen Not Detected (NotDetected); Benzodiazepine Screen Not Detected (NotDetected); Cocaine Metabolite Screen Not Detected (NotDetected); Methadone Not Detected (NotDetected); Methamphetamine Detected (NotDetected); Opiate Screen Not Detected (NotDetected); Phencyclidine (PCP) Not Detected (NotDetected); THC/Cannabinoid Screen Not Detected (NotDetected); Tricyclic Screen Not Detected (NotDetected)
[2018-01-07 23:42] LABS: Medtox Control Line Valid? VALID (VALID); Oxycodone Screen Not Detected (NotDetected)
[2018-01-07 23:45] LABS: Hyaline Casts/LPF 4-6 HYALINE CAST LPF (0-3 Hyaline)
[2018-01-08] MEDS: Sodium Chloride 0.9% 1,000 ML IV SCH ×5 (01:38→18:51)
[2018-01-08 01:41] LABS: Troponin I Less than 0.010 ng/mL (< 0.028)
[2018-01-08 05:10] LABS: Troponin I Less than 0.010 ng/mL (< 0.028)
[2018-01-08] MEDS ORDERED: Calcium Carbonate 500 MG ChewTAB PO PRN (08:34)
[2018-01-08] MEDS ORDERED: Diabetic Tussin 200 MG/10 ML UDCUP PO PRN (08:34)
[2018-01-08] MEDS ORDERED: Loratadine 10 MG TAB PO PRN (08:34)
[2018-01-08] MEDS ORDERED: hydrALAZINE 20 MG/ML VIAL SLOW IVP PRN (08:34)
[2018-01-08] MEDS ORDERED: Ondansetron HCl/PF 4 MG/2 ML Vial IVP PRN (08:34)
[2018-01-08] MEDS ORDERED: Benzonatate 100 MG CAP PO PRN (08:34)
[2018-01-08] MEDS ORDERED: Nitroglycerin 0.4 MG TAB (25 Tab Bottle) SL PRN (08:34)
[2018-01-08] MEDS ORDERED: Senokot S 8.6-50 MG TAB PO PRN (08:34)
[2018-01-08] MEDS ORDERED: Acetaminophen 325 MG TAB PO PRN (08:34)
[2018-01-08] MEDS ORDERED: Bisacodyl 5 MG TAB PO PRN (08:34)
[2018-01-08] MEDS ORDERED: traMADol HCl 50 MG TAB PO PRN (08:34)
[2018-01-08] MEDS ORDERED: Lorazepam 1 MG TAB PO PRN (08:34)
[2018-01-08] MEDS ORDERED: Amlodipine 10 MG TAB PO SCH (09:00)
[2018-01-08] MEDS ORDERED: Amlodipine 5 MG TAB PO SCH (10:00)
[2018-01-08] MEDS ORDERED: ADENOSINE 60 MG/20 ML VIAL ONE (12:14)
[2018-01-08] MEDS: Famotidine 20 MG TAB PO SCH ×2 (12:41→20:02)
[2018-01-08] MEDS: Enoxaparin Sodium 40 MG/0.4 ML SYRINGE SC SCH (12:41)
[2018-01-08] MEDS: Lisinopril 5 MG TAB PO SCH ×2 (12:41→20:02)
--- NOTE | 2018-01-08 14:29 | NM ---
MYOCARDIAL PERFUSION SCAN WITH SPECT IMAGING: History: Chest pain. FINDINGS: Exam was performed using 33 mCi Technetium 99M Sestamibi on stress and 11 mCi Technetium 99M Sestamib i on the resting images. This shows a normal distribution of the radiopharmaceutical. No signs of isc hemia or scar. WALL MOTION: There is symmetric contractility to the ventricle. LEFT VENTRICULAR EJECTION FRACTION: The calculated left ventricular ejection fraction is 48%. IMPRESSION: 1. No evidence of ischemia or scar. 2. Diminished left ventricular ejection fraction of 48%. Please correlate with echocardiogram. POS: [facility]
[2018-01-08] MEDS ORDERED: Nitrofurantoin Monohyd/M-Cryst 100 MG CAP PO SCH (14:45)
[2018-01-08 15:23] LABS: HIV (1/2) Antibody/Antigen Non-Reactive (NonReactive)
--- NOTE | 2018-01-08 15:42 | HP ---
DATE OF ADMISSION: 01/08/2018 PRIMARY CARE PHYSICIAN: None. CHIEF COMPLAINT: 1. Multiple chest pain. 2. "Veins" popping out in his legs. 3. Dizziness. 4. Lightheadedness. 5. Slurred speech. HISTORY OF PRESENT ILLNESS: Mr. Cuevas is a 47-year-old male with past medical history of hyperten deisy and hepatitis C as per himself who presented to the ER with above-mentioned complaint. History is mainly obtained by the patient himself who is rather poor historian. His daughter is present at [facility] and does not provide any additional history. According to Mr. Cuevas, he was recently incarcerated and in the group home, he was told that he has high blood pressure and hepatitis C. He was released on Monday and has not seen any providers for the fo llowup. He has not taken any of the medication. He noticed yesterday that both legs veins are poppi ng out and he has slurred speech, lightheadedness, sweating, chest pain, shortness of breath, weaknes s, dizziness, and came to the emergency room. In the emergency room, his blood pressure was as high as 240/145. His initial workup including a 12-lead EKG showed normal sinus rhythm without any specif ic ST or T-wave changes. He was tachycardic to 122. His CT scan of the head and chest x-ray was unr emarkable. He was given labetalol and aspirin for treatment and is now being admitted for further wo rkup. Notably, his urine and toxicology is positive for amphetamines and methamphetamines. He has l eukocytosis with wbc's of 16.6 without left shift. He was also found to have creatinine kinase eleva samson to 1384 and evidence of hyperbilirubinemia and AST, ALT elevation as well. Serial cardiac enzyme s have been trended and they are negative x3. Urinalysis showed trace wbc's. PAST MEDICAL HISTORY: 1. Hypertension. 2. Medication noncompliance. 3. Alcohol abuse. 4. Drug abuse. 5. Questionable diabetes. 6. Hepatitis C as per the patient. He reports that he was told in the group home that his hepatitis C and requires placement. PAST SURGICAL HISTORY: Left hand surgery by Dr. Colbert in August 2017. PSYCHIATRIC HISTORY: Depression. SOCIAL HISTORY: He smokes occasionally, drinks heavily and he will do drugs whenever and he is not i ncarcerated. FAMILY HISTORY: Positive for lymphoma in his father. His grandparents all had high blood pressure, heart disease. Heart disease in one of the uncles as well. REVIEW OF SYSTEMS: Currently, he is feeling much better. His popping veins have gone down. Otherwi se, a 12-point review of systems was done. It is negative except for those mentioned in the history and physical. ALLERGIES: None. CURRENT MEDICATIONS: None. He is not taking anything. LABORATORY DATA: CBC shows WBCs of 16.6. Serum Chemistries: Creatinine 1.10, total bilirubin 1.3, AST 86, ALT 121, alkaline phosphatase normal, creatinine kinase 1384 and repeat 931. Troponin less t hinojosa 0.010 x3. Urine drug screen is positive for amphetamines and methamphetamines. Chest x-ray by m y review has no evidence to suggest pleural effusion, edema or infiltrate. CT scan of the brain is n egative for any hemorrhage or acute infarction. A 12-lead EKG by my review shows sinus tachycardia without any acute ST or T-wave changes. PHYSICAL EXAMINATION: VITAL SIGNS: Most recent vital signs, temperature 97.4, pulse of 91, respirations 16, saturating 93% on room air, blood pressure 152/88. GENERAL: He appears anxious and tearful. Otherwise, no acute distress. Awake, alert, oriented x3. HEENT: Mucous membrane is moist and pink. No oropharyngeal exudate or erythema. Head is normocepha lic, atraumatic. Pupils equal, reactive to light and accommodation. Extraocular movement intact. NECK: Supple without any lymphadenopathy, JVD or bruit. CHEST: Clear to auscultation without any wheezing, rales or rhonchi. CARDIOVASCULAR: Rhythm is regular without any murmur, rubs or gallops. ABDOMEN: Soft, nontender, nondistended, positive bowel sounds, no fluid wave. EXTREMITIES: Free of any cyanosis, clubbing, or edema. No palpable cords felt in his legs. No evid ence of lymphangitis. No erythema. No warmth. NEUROLOGIC: Nonfocal. SKIN: Free of any rashes or bruises. Feels warm and dry to touch. PSYCHIATRIC: Normal affect. IMPRESSION AND PLAN: 1. Uncontrolled hypertension with hypertensive urgency. He will be restarted on Norvasc and lisinop ril 5 mg p.o. b.i.d. and it will be titrated based on his response. I have encouraged him to abstain from amphetamine or any other kind of drug abuse. I have ordered a stress test for him given his fa duglas history significant for coronary artery disease and for himself uncontrolled hypertension and dr rafa abuse. Serial cardiac enzymes have been trended and are negative. There is no arrhythmia on the telemetry monitoring so far. He is symptom-free for now. 2. Elevated bilirubin and liver enzymes. The patient provides me with history of hepatitis C which is untreated. We will check it again. I will refer him to Infectious Disease and Gastroenterology f or the outpatient setting and followup of the labs. He is instructed strongly to abstain from any ki nd of alcohol and drugs. We will also obtain an abdominal ultrasound as he complains of some "protru deisy" from his right abdomen on and off. Possibility of hernia cannot be ruled out on examination at this time. However, right now on my exam, there are no palpable masses. 3. Rhabdomyolysis. Likely secondary to recent drug use and uncontrolled hypertension. He will be c ontinued on IV fluids that were started in the emergency room. CPK is trending down. 4. Leukocytosis, most likely reactive. His urine did have some wbc's without leukocyte esterase, ni trite, or bacteria. We will send the urine for culture. He is afebrile otherwise. He does complain of dysuria, so we will start him on oral nitrofurantoin for now. 5. Substance abuse and alcohol abuse. Extensive counseling has been provided. The patient reports that he most likely will move to [place] to live with his sister. 6. History of hepatitis C. We will check hepatitis C antibody and PCR for DNA. HIV will also be te sted. 7. Testicular cyst. The patient reports on and off swelling and his testicular ultrasound done few years ago was consistent with an epididymal cyst. I have encouraged him to follow up with Urology as an outpatient. DISPOSITION: Mr. Cuevas is currently being admitted to the hospital for uncontrolled hypertension and multitude of symptoms, but mainly to rule out acute coronary syndrome and treatment for rhabdomyo lysis. Estimated length of stay is less than 2 midnights. Further management will depend upon his c linical course.
[2018-01-08 16:05] VITALS: BMI 28.5
[2018-01-08 16:13] LABS: Hep C IgG Ab Reflex HepC Qnt (NonReactive); Hep C Index 9.31 S/CO (0-0.79)
[2018-01-08] MEDS: Nitrofurantoin Monohyd/M-Cryst 100 MG CAP PO SCH (20:02)
[2018-01-09] MEDS: Sodium Chloride 0.9% 1,000 ML IV SCH ×3 (01:17→15:27)
[2018-01-09] MEDS: Enoxaparin Sodium 40 MG/0.4 ML SYRINGE SC SCH (08:20)
[2018-01-09] MEDS: Famotidine 20 MG TAB PO SCH (08:21)
[2018-01-09] MEDS: Nitrofurantoin Monohyd/M-Cryst 100 MG CAP PO SCH (08:21)
[2018-01-09] MEDS: Lisinopril 5 MG TAB PO SCH (08:21)
--- NOTE | 2018-01-09 08:28 | ULT ---
ABDOMINAL ULTRASOUND: DATE: 01/09/2018. PROVIDED CLINICAL HISTORY: Abdominal pain and elevated LFTs. FINDINGS: Visualized abdominal aorta, IVC, and pancreas appear normal. The liver demonstrates no mass or intra hepatic biliary ductal dilatation. The common duct is not dilated. Gallbladder demonstrates no ston es, wall thickening, or pericholecystic fluid. Kidneys demonstrate no evidence for hydronephrosis or mass. The spleen is upper limits of normal in size measuring about 13.4 cm in craniocaudal dimensio n. IMPRESSION: Unremarkable abdominal ultrasound. POS: BERNARDO
[2018-01-09] MEDS ORDERED: Amlodipine 10 MG TAB PO SCH (09:00)
[2018-01-09 12:09] VITALS: BP 167/103; TEMP 97.4
--- NOTE | 2018-01-09 16:14 | PDOC.EVN ---
Event Note - Event Note Event Note: hospital course and DC plan discussed with Juan SINCLAIR. agree with plans
[2018-01-10 11:22] LABS: HCV log10 5.616 (.); Hep C PCR-Quant 413000 IU/mL (.)
--- NOTE | 2018-01-10 11:42 | DIS ---
DATE OF ADMISSION: 01/08/2018 DATE OF DISCHARGE: 01/09/2018 DISCHARGE DIAGNOSES: 1. Essential hypertension, stable. 2. Chest pain, noncardiac. 3. Alcohol abuse, uncomplicated. 4. Substance abuse, uncomplicated. CONSULTATIONS: None. PERTINENT LABORATORY AND X-RAY FINDINGS: WBC 16.6, which was likely reactive to substance abuse. RB C 5.07, hemoglobin 15.2. Total bilirubin 1.3, AST 86, ALT 121, creatinine kinase 931, CK-MB 11.8. T roponins within normal limits x3. Urine toxicology screen detected amphetamines and methamphetamines . Hepatitis C antibody was positive. Echocardiogram did show an EF of 50-55%. Stress test revealed no signs of ischemia. Portable chest x-ray showed no active intrathoracic disease. HOSPITAL COURSE: The patient was admitted after presenting with chest pain, lightheadedness, dizzine ss, slurred speech, and an elevated blood pressure of 240/145. His initial EKG did show sinus rhythm without any specific ST or T-wave inversion changes. He was found to be tachycardic. His urine and toxicology screen were positive for amphetamines and methamphetamines. The patient did report a pas t medical history of hepatitis C, creatinine kinase was elevated at 134 and with evidence of hyperbil irubinemia along with an elevated AST, ALT. Cardiac enzymes were trended, however, were found to be negative x3. A urinalysis was obtained and did show trace wbc's and patient did experience some dysu brittany; therefore, he was started on Macrobid, which seemed to improve symptoms. Patient did undergo st ress test, which revealed no ischemia at this time. He then underwent further evaluation with an ech ocardiogram, which demonstrated an EF of 50-55%. Throughout the hospital course, he remained on IV f luid which included normal saline. He had tolerated this well without any complications. Due to his initial blood pressure on admission, he was then started on lisinopril 5 mg twice daily along with a mlodipine 10 mg daily. He had tolerated this well and his blood pressure continued to improve during hospital course, and he did not experience any further chest pain. During hospital course, he also complained of some tenderness in his abdomen along with history of hepatitis C. Abdominal ultrasound was then ordered, which was found to be unremarkable. It was recommended that he follow up with gas troenterologist upon discharge; however, the patient stated that he was moving away and relocating to [place]. He stated he was moving within 1-2 weeks, however, will find a PCP along with a gas troenterologist in that area. He was seen and examined with family at bedside prior to discharge. Virginie carolina was provided prescriptions for new medications including lisinopril, Norvasc, Macrobid. There were recommendations given to him and it was strongly encouraged that he refrain from any further alcohol or drug abuse, the patient did verbalize his understanding and did agree with this plan. FOLLOWUP: The patient is to follow up with a new primary care physician once he relocated to [facility] in 1-2 weeks, it is also recommended he follow up with a concrete stone finishing supervisor for further evalu ation of his underlying hepatitis C along with an Infectious Disease specialist. CONDITION ON DISCHARGE: Stable. ACTIVITY: Up as tolerated. DIET: Regular. CODE STATUS: FULL CODE. DISPOSITION: Home on 01/09/2018.
--- NOTE | 2018-01-13 11:36 | EKG ---
Test Reason : CP Blood Pressure : / mmHG Vent. Rate : 122 BPM Atrial Rate : 122 BPM P-R Int : 136 ms QRS Dur : 088 ms QT Int : 338 ms P-R-T Axes : 039 -01 013 degrees QTc Int : 481 ms Sinus tachycardia Nonspecific ST abnormality Abnormal ECG Confirmed by FRIDA WATT, GAURI ([id number]), editor greeting card ARMANDO MONTGOMERY ([id number]) on 01/13/2018 11:36:12 AM Referred By: MD GALICIA Confirmed By:GAURI GALICIA MD
== END 2018-01-09 15:26 | disposition home or self-care (01) ==
LOC: ERS 21:44 → 2SW 23:45
PROVIDERS: ADMIT Hospitalist; ATTEND Hospitalist
DX: R07.89 Other chest pain (principal); R42 Dizziness and giddiness; R47.81 Slurred speech; I16.0 Hypertensive urgency; I10 Essential (primary) hypertension; B19.20 Unspecified viral hepatitis C without hepatic coma; F32.9 Major depressive disorder, single episode, unspecified; F17.210 Nicotine dependence, cigarettes, uncomplicated; F10.10 Alcohol abuse, uncomplicated; F19.10 Other psychoactive substance abuse, uncomplicated; R79.89 Other specified abnormal findings of blood chemistry; M62.82 Rhabdomyolysis; D72.829 Elevated white blood cell count, unspecified; Z91.14 Patient's other noncompliance with medication regimen
CPT/HCPCS: 36415; 70450; 71045; 76700; 78452; 80053; 80306; 81003; 81015; 82550; 82553; 84484; 85025; 86803; 87086; 87389; 87521; 87522; 93005; 93017; 93306; 96361; 96374; A9500; G0378; J0153; J1650